=== PATIENT | male | born 1950 | race African-American/Black ===

== ENCOUNTER 2016-12-11 18:53 | Emergency (ER) | payer MEDICARE, MEDICAID ==
[~2016-12-11] VITALS: Ht 188 cm; Wt 72.7 kg
[2016-12-11 18:53] VITALS: TEMP 98.3
[~2016-12-11 18:53] MED LIST: BACTRIM 400 MG-1 TAB PO; BACTRIM DS 8001 TAB PO; DILAUDID 4MG TAB4 MG PO; ENULOSE10 GM/15 M PO; LIPITOR 10MG10 MG PO; PROAIR HFA0.09 MG/AC IH; RT SPIRIVA18 MCG IH; VALIUM 10MG10 MG/TAB PO
[2016-12-11 19:35] LABS: HEMATOCRIT 46.2 % (42.0-52.0); HEMOGLOBIN 15.6 g/dl (13.5-18.0); MEAN CELL VOLUME 94 fl (80.0-100.0); MEAN CORPUSCULAR HEMOGLOBIN 32 pg (27.0-31.0); MEAN CORPUSCULAR HGB CONC 34 g/dl (33.0-37.0); MEAN PLATELET VOLUME 11.4 fl (7.4-10.4); PLATELET COUNT 78 K/mm3 (130-400); RED BLOOD COUNT 4.93 M/mm3 (4.20-5.60); REDCELL DISTRIBUTION WIDTH-CV 12.7 % (11.5-14.5)
[2016-12-11 19:36] LABS: ADD PATHOLOGY DIFF REVIEW NO
[2016-12-11 19:41] LABS: INR 1.4 (0.8-3.0); PROTHROMBIN TIME 15.1 SECONDS (9.7-12.8)
[2016-12-11 19:45] VITALS: BP 100/59; PULSE 78
[2016-12-11 19:47] LABS: LIPASE 26 U/L (23-300)
[2016-12-11 19:48] LABS: BAND 10 % (0-10); NEUTROPHILS 81 % (42.0-75.2); PLATELET ESTIMATE DECREASED (NORMAL); TOTAL CELLS COUNTED 100
[2016-12-11 20:03] LABS: PARTIAL THROMBOPLASTIN TIME 39.3 SECONDS (26.0-37.0)
[2016-12-11 20:06] LABS: TROPONIN-I < 0.012 ng/mL (0.000-0.034)
[2016-12-11 20:12] LABS: ADJUSTED CALCIUM 9.2 mg/dL (8.4-10.2); ALBUMIN 3.3 gm/dL (3.5-5.0); BILIRUBIN,TOTAL 2.4 mg/dL (0.0-1.0); CALCIUM 8.6 mg/dL (8.4-10.2); CREATININE, serum 0.72 mg/dL (0.66-1.25); POTASSIUM 3.4 mmol/L (3.4-5.0); TOTAL PROTEIN 7.9 gm/dL (6.4-8.2)
[2016-12-11] MEDS ORDERED: NORCO 325 MG-51 TAB PO (20:36)
== END 2016-12-11 19:45 | disposition home or self-care (01) ==
LOC: COL.ER 18:53
PROVIDERS: Family Medicine
DX: J44.9 Chronic obstructive pulmonary disease, unspecified (principal); F41.0 Panic disorder [episodic paroxysmal anxiety]; R07.9 Chest pain, unspecified; Z87.891 Personal history of nicotine dependence; R00.0 Tachycardia, unspecified
CPT/HCPCS: J1170; J2405; J7030

== ENCOUNTER 2017-01-01 19:04 | Emergency (ER) | payer MEDICARE, MEDICAID ==
[~2017-01-01] VITALS: Ht 188 cm; Wt 72.7 kg
[~2017-01-01 19:04] MED LIST changes: +NORCO 325 MG-51 TAB PO
[2017-01-01 19:08] VITALS: TEMP 98.5
[2017-01-01] MEDS ORDERED: BACTRIM DS 8001 TAB PO (19:41)
[2017-01-01] MEDS ORDERED: VERAPAMIL120 MG/TA1 PO (19:42)
[2017-01-01] MEDS ORDERED: MONODOX100 PO (19:42)
[2017-01-01] MEDS ORDERED: DILAUDID 4MG TAB4 MG PO (19:43)
[2017-01-01] MEDS ORDERED: ENULOSE10 GM/15 M PO (19:43)
[2017-01-01 20:43] LABS: PH 6 (5-8); SQUAMOUS EPITHELIAL 0-2 /hpf; URINE APPEARANCE Clear; URINE BACTERIA None Seen /hpf; URINE BILIRUBIN Negative (NEGATIVE); URINE BLOOD Negative (NEGATIVE); URINE COLOR Yellow; URINE GLUCOSE Negative (NEGATIVE); URINE KETONE Negative (NEGATIVE); URINE RBC 0-2 /hpf; URINE UROBILINOGEN >=4.0 mg/dL (NEGATIVE); URINE WBC 0-2 /hpf
[2017-01-01 20:44] LABS: BASO % 0.4 % (0.0-2.0); EOS # 0.1 (0.0-0.7); EOS % 1.1 % (0-4.0); GRAN # 2.6 (1.4-6.5); GRAN % 57.1 % (42.2-75.2); HEMATOCRIT 43.5 % (42.0-52.0); HEMOGLOBIN 14.8 g/dl (13.5-18.0); LYMPH # 1.4 (1.2-3.4); MEAN CELL VOLUME 94 fl (80.0-100.0); MEAN CORPUSCULAR HEMOGLOBIN 32 pg (27.0-31.0); MEAN CORPUSCULAR HGB CONC 34 g/dl (33.0-37.0); MEAN PLATELET VOLUME 10.7 fl (7.4-10.4); MONO # 0.5 (0.1-0.6); MONO % 10.2 % (1.7-9.3); RED BLOOD COUNT 4.62 M/mm3 (4.20-5.60); WHITE BLOOD COUNT 4.5 K/mm3 (4.8-10.8)
[2017-01-01 20:45] LABS: PLATELET COUNT 74 K/mm3 (130-400)
[2017-01-01 20:57] LABS: ADJUSTED CALCIUM 9.7 mg/dL (8.4-10.2); ALANINE AMINOTRANSFERASE 67 U/L (21-72); ALKALINE PHOSPHATASE 124 U/L (50-136); ANION GAP 13 mmol/L (7-16); BILIRUBIN,TOTAL 2.4 mg/dL (0.0-1.0); BLOOD UREA NITROGEN 8 mg/dL (9-20); CALCIUM 9.7 mg/dL (8.4-10.2); CARBON DIOXIDE 27 mmol/L (22-30); CHLORIDE 100 mmol/L (98-107); CREATININE, serum 0.73 mg/dL (0.66-1.25); GLUCOSE 68 mg/dL (74-106); LIPASE 27 U/L (23-300); POTASSIUM 4.4 mmol/L (3.4-5.0); SODIUM 140 mmol/L (137-145); TOTAL PROTEIN 8.7 gm/dL (6.4-8.2)
[2017-01-01 21:03] LABS: C-REACTIVE PROTEIN < 0.5 mg/dL (0.0-0.9)
[2017-01-01 21:06] LABS: B-TYPE NATRIURETIC PEPTIDE 91 pg/mL (0-125); TROPONIN-I < 0.012 ng/mL (0.000-0.034)
[2017-01-02 00:18] VITALS: BP 128/86; PULSE 75
== END 2017-01-02 00:51 | disposition home or self-care (01) ==
LOC: COL.ER 19:04
PROVIDERS: Emergency Medicine
DX: J44.9 Chronic obstructive pulmonary disease, unspecified (principal); K59.00 Constipation, unspecified; G89.29 Other chronic pain; I10 Essential (primary) hypertension; F17.210 Nicotine dependence, cigarettes, uncomplicated
CPT/HCPCS: J2405

== ENCOUNTER 2017-01-02 13:01 | Emergency (ER) | payer MEDICARE, MEDICAID ==
[~2017-01-02] VITALS: Ht 188 cm; Wt 72.7 kg
[~2017-01-02 13:01] MED LIST changes: +MONODOX100 PO; +VERAPAMIL120 MG/TA1 PO
[2017-01-02 13:04] VITALS: TEMP 98.2
[2017-01-02 15:58] VITALS: BP 110/64; PULSE 84
== END 2017-01-02 15:58 | disposition home or self-care (01) ==
LOC: COL.ER 13:01
DX: K56.41 Fecal impaction (principal); I10 Essential (primary) hypertension; R51 Headache; Z79.891 Long term (current) use of opiate analgesic

== ENCOUNTER 2017-01-06 17:21 | Emergency (ER) | payer MEDICARE, MEDICAID ==
[~2017-01-06] VITALS: Ht 188 cm; Wt 72.7 kg
[2017-01-06 17:27] VITALS: TEMP 98.9
[2017-01-06 18:38] LABS: BASO % 0.4 % (0.0-2.0); EOS % 0.4 % (0-4.0); GRAN # 6.8 (1.4-6.5); GRAN % 69.6 % (42.2-75.2); HEMATOCRIT 49.8 % (42.0-52.0); HEMOGLOBIN 16.9 g/dl (13.5-18.0); LYMPH # 1.9 (1.2-3.4); LYMPH % 19.1 % (20.0-51.0); MEAN CELL VOLUME 94 fl (80.0-100.0); MEAN CORPUSCULAR HEMOGLOBIN 32 pg (27.0-31.0); MEAN CORPUSCULAR HGB CONC 34 g/dl (33.0-37.0); MEAN PLATELET VOLUME 11.2 fl (7.4-10.4); MONO % 10.3 % (1.7-9.3); PLATELET COUNT 72 K/mm3 (130-400); RED BLOOD COUNT 5.31 M/mm3 (4.20-5.60); REDCELL DISTRIBUTION WIDTH-CV 13.1 % (11.5-14.5); WHITE BLOOD COUNT 9.8 K/mm3 (4.8-10.8)
[2017-01-06 18:51] LABS: INR 1.2 (0.8-3.0); PROTHROMBIN TIME 13.3 SECONDS (9.7-12.8)
[2017-01-06 18:53] LABS: PARTIAL THROMBOPLASTIN TIME 33.8 SECONDS (26.0-37.0)
[2017-01-06 18:58] LABS: B-TYPE NATRIURETIC PEPTIDE 169 pg/mL (0-125)
[2017-01-06 19:03] LABS: TROPONIN-I < 0.012 ng/mL (0.000-0.034)
[2017-01-06 19:38] LABS: ADJUSTED CALCIUM 9.5 mg/dL (8.4-10.2); ALBUMIN 4.1 gm/dL (3.5-5.0); CALCIUM 9.6 mg/dL (8.4-10.2); CREATININE, serum 0.65 mg/dL (0.66-1.25); POTASSIUM 4.3 mmol/L (3.4-5.0); TOTAL PROTEIN 9.3 gm/dL (6.4-8.2)
[2017-01-06] MEDS ORDERED: ATIVAN 1MG T1 MG/TAB PO (20:25)
[2017-01-06] MEDS ORDERED: PREDNISONE20 MG PO (20:25)
[2017-01-06] MEDS ORDERED: AMOXICILLIN/CLA1 TA1 PO (20:25)
[2017-01-06] MEDS ORDERED: DILAUDID 2MG TAB2 MG PO (20:25)
[2017-01-06 21:47] VITALS: BP 121/64; PULSE 90
== END 2017-01-06 21:48 | disposition home or self-care (01) ==
LOC: COL.ER 17:21
PROVIDERS: Emergency Medicine
DX: J44.1 Chronic obstructive pulmonary disease with (acute) exacerbation (principal); R10.32 Left lower quadrant pain; G89.29 Other chronic pain; F17.210 Nicotine dependence, cigarettes, uncomplicated; R11.2 Nausea with vomiting, unspecified; Z79.891 Long term (current) use of opiate analgesic
CPT/HCPCS: J0696; J2060; J2765; J2930; J7030

== ENCOUNTER 2017-01-10 12:45 | Emergency (ER) | payer MEDICARE, MEDICAID ==
[~2017-01-10] VITALS: Ht 188 cm; Wt 72.7 kg
[~2017-01-10 12:45] MED LIST changes: +AMOXICILLIN/CLA1 TA1 PO; +ATIVAN 1MG T1 MG/TAB PO; +DILAUDID 2MG TAB2 MG PO; +PREDNISONE20 MG PO
[2017-01-10 12:47] VITALS: BP 114/67
[2017-01-10 14:05] LABS: BASO % 0.2 % (0.0-2.0); EOS % 0.1 % (0-4.0); GRAN # 5.7 (1.4-6.5); GRAN % 57.9 % (42.2-75.2); HEMATOCRIT 47.6 % (42.0-52.0); HEMOGLOBIN 16.3 g/dl (13.5-18.0); LYMPH # 2.8 (1.2-3.4); LYMPH % 28.3 % (20.0-51.0); MEAN CELL VOLUME 94 fl (80.0-100.0); MEAN CORPUSCULAR HEMOGLOBIN 32 pg (27.0-31.0); MEAN CORPUSCULAR HGB CONC 34 g/dl (33.0-37.0); MEAN PLATELET VOLUME 10.3 fl (7.4-10.4); MONO # 1.3 (0.1-0.6); MONO % 13.3 % (1.7-9.3); PLATELET COUNT 124 K/mm3 (130-400); RED BLOOD COUNT 5.07 M/mm3 (4.20-5.60); REDCELL DISTRIBUTION WIDTH-CV 12.9 % (11.5-14.5); WHITE BLOOD COUNT 9.9 K/mm3 (4.8-10.8)
[2017-01-10 14:08] LABS: ADJUSTED CALCIUM 10.1 mg/dL (8.4-10.2); ALBUMIN 3.8 gm/dL (3.5-5.0); BILIRUBIN,TOTAL 1.8 mg/dL (0.0-1.0); C-REACTIVE PROTEIN 0.9 mg/dL (0.0-0.9); CALCIUM 9.9 mg/dL (8.4-10.2); CREATININE, serum 0.63 mg/dL (0.66-1.25); POTASSIUM 3.6 mmol/L (3.4-5.0); TOTAL PROTEIN 8.6 gm/dL (6.4-8.2)
[2017-01-10 15:19] VITALS: TEMP 97.1
[2017-01-10 15:37] VITALS: PULSE 111
== END 2017-01-10 16:11 | disposition home or self-care (01) ==
LOC: COL.ER 12:45
PROVIDERS: Family Medicine
DX: Z02.89 Encounter for other administrative examinations (principal)

== ENCOUNTER 2017-01-11 23:52 | Inpatient (IN) | payer MEDICARE, MEDICAID ==
[~2017-01-11] VITALS: Ht 188 cm; Wt 61.0 kg
[2017-01-12 01:23] LABS: BASO % 0.2 % (0.0-2.0); EOS % 0.2 % (0-4.0); GRAN # 5.8 (1.4-6.5); HEMATOCRIT 49.6 % (42.0-52.0); LYMPH # 2.2 (1.2-3.4); LYMPH % 23.4 % (20.0-51.0); MEAN CELL VOLUME 93 fl (80.0-100.0); MEAN CORPUSCULAR HEMOGLOBIN 32 pg (27.0-31.0); MEAN CORPUSCULAR HGB CONC 34 g/dl (33.0-37.0); MEAN PLATELET VOLUME 9.9 fl (7.4-10.4); MONO # 1.2 (0.1-0.6); MONO % 12.9 % (1.7-9.3); PLATELET COUNT 130 K/mm3 (130-400); RED BLOOD COUNT 5.32 M/mm3 (4.20-5.60); REDCELL DISTRIBUTION WIDTH-CV 12.7 % (11.5-14.5); WHITE BLOOD COUNT 9.2 K/mm3 (4.8-10.8)
[2017-01-12 01:33] LABS: ADJUSTED CALCIUM 9.8 mg/dL (8.4-10.2); ALBUMIN 3.6 gm/dL (3.5-5.0); BILIRUBIN,TOTAL 2.1 mg/dL (0.0-1.0); CALCIUM 9.5 mg/dL (8.4-10.2); CREATININE, serum 0.66 mg/dL (0.66-1.25); POTASSIUM 3.8 mmol/L (3.4-5.0); TOTAL PROTEIN 8.3 gm/dL (6.4-8.2)
[2017-01-12 02:57] VITALS: BP 128/85; PULSE 112; TEMP 97.8
[2017-01-12 08:23] VITALS: BP 122/58; PULSE 107; TEMP 97.7
[2017-01-12 11:46] LABS: ARTERIAL BLD GAS O2 SATURATION 95.2 % (92-100); ARTERIAL BLOOD GAS BASE EXCESS 4.4 (-2-2); ARTERIAL BLOOD GAS HCO3 30.5 meq/L (22-26); ARTERIAL BLOOD GAS PO2 78.8 mmHg (80-100); OXYHEMOGLOBIN 93.9 %
[2017-01-12 11:47] LABS: ALLEN TEST YES; ALLENS TEST RESULT PASS; ATS? YES
[2017-01-12 12:07] VITALS: BP 102/62; PULSE 113; TEMP 98
[2017-01-12 15:59] VITALS: BP 119/68; PULSE 104; TEMP 97.6
[2017-01-12 19:42] VITALS: BP 120/71; PULSE 82; TEMP 97.9
[2017-01-12 23:41] VITALS: BP 98/68; PULSE 74; TEMP 97.6
[2017-01-13 03:57] VITALS: BP 104/67; PULSE 86; TEMP 98.2
[2017-01-13 07:24] VITALS: BP 114/77; PULSE 89; TEMP 97.5
[2017-01-13 11:25] VITALS: BP 121/84; PULSE 107; TEMP 97.6
[2017-01-13 15:41] VITALS: BP 104/58; PULSE 106; TEMP 97.8
[2017-01-13 20:51] VITALS: BP 107/67; PULSE 104; TEMP 98
[2017-01-13 23:04] VITALS: BP 106/67; PULSE 93; TEMP 97.7
[2017-01-14 03:28] VITALS: BP 105/64; PULSE 92; TEMP 97.7
[2017-01-14 07:57] VITALS: BP 121/70; PULSE 90; TEMP 97.8
[2017-01-14 11:18] VITALS: BP 115/72; PULSE 93; TEMP 97.7
[2017-01-14 15:14] VITALS: BP 115/67; PULSE 106; TEMP 98.7
[2017-01-14] MEDS ORDERED: LEVAQUIN 750MG750 M1 PO (17:35)
[2017-01-14] MEDS ORDERED: PREDNISONE20 MG PO (17:37)
[2017-01-14] MEDS ORDERED: COMBIRESP IH (17:38)
[2017-01-14] MEDS ORDERED: DILAUDID 4MG TAB4 MG PO (17:52)
== END 2017-01-14 18:17 | disposition home or self-care (01) | DRG 189 ==
LOC: COL.ER 23:52 → MEDICAL 01-12 01:56
PROVIDERS: Emergency Medicine; Internal Medicine Pulmonary Disease
DX: J96.21 Acute and chronic respiratory failure with hypoxia (principal); E43 Unspecified severe protein-calorie malnutrition; J44.1 Chronic obstructive pulmonary disease with (acute) exacerbation; Z68.1 Body mass index [BMI] 19.9 or less, adult; F17.210 Nicotine dependence, cigarettes, uncomplicated; I10 Essential (primary) hypertension; G89.29 Other chronic pain; R11.2 Nausea with vomiting, unspecified; Z87.820 Personal history of traumatic brain injury
CPT/HCPCS: OP; 99223-AI; 99232-AI; 99239; G0378; G8978-GP; G8979-GP; G8987-GO; G8988-GO; J1650; J1956; J2930; J7030; J7512

== ENCOUNTER → 2017-06-17 | Outpatient (REF) ==
[~2017-06-17] MED LIST changes: +COMBIRESP IH; +LEVAQUIN 750MG750 M1 PO
== END ==
LOC: ZLAB.WCH 15:04
DX: Z12.5 Encounter for screening for malignant neoplasm of prostate (principal)
CPT/HCPCS: G0103

== ENCOUNTER 2018-05-06 13:17 | Emergency (ER) | payer MEDICARE, MEDICAID ==
[~2018-05-06] VITALS: Ht 188 cm; Wt 50.9 kg
[2018-05-06 13:40] VITALS: TEMP 97.2
[2018-05-06 14:42] LABS: BASO % 0.2 % (0.0-2.0); GRAN # 12.2 (1.4-6.5); GRAN % 85.7 % (42.2-75.2); HEMATOCRIT 53.5 % (42.0-52.0); HEMOGLOBIN 17.4 g/dl (13.5-18.0); LYMPH # 0.7 (1.2-3.4); LYMPH % 4.7 % (20.0-51.0); MEAN CELL VOLUME 97 fl (80.0-100.0); MEAN CORPUSCULAR HEMOGLOBIN 32 pg (27.0-31.0); MEAN CORPUSCULAR HGB CONC 33 g/dl (33.0-37.0); MEAN PLATELET VOLUME 11.6 fl (7.4-10.4); MONO # 1.3 (0.1-0.6); MONO % 8.8 % (1.7-9.3); PLATELET COUNT 129 K/mm3 (130-400); RED BLOOD COUNT 5.51 M/mm3 (4.20-5.60)
[2018-05-06 15:12] LABS: ALBUMIN 3.1 gm/dL (3.5-5.0); BILIRUBIN,TOTAL 4.8 mg/dL (0.0-1.0); CALCIUM 8.8 mg/dL (8.4-10.2); CREATININE, serum 2.07 mg/dL (0.66-1.25); POTASSIUM 4.6 mmol/L (3.4-5.0); TOTAL PROTEIN 7.5 gm/dL (6.4-8.2)
[2018-05-06 17:19] VITALS: BP 83/54; PULSE 104
== END 2018-05-06 17:30 | disposition short-term general hospital (02) ==
LOC: COL.ER 13:17
PROVIDERS: Emergency Medicine
DX: A41.9 Sepsis, unspecified organism (principal); J18.1 Lobar pneumonia, unspecified organism; J44.1 Chronic obstructive pulmonary disease with (acute) exacerbation; S37.009A Unspecified injury of unspecified kidney, initial encounter; K75.9 Inflammatory liver disease, unspecified; E87.2 Acidosis; E16.2 Hypoglycemia, unspecified
CPT/HCPCS: C1751; J2543; J2930; J7030; J7042